=== PATIENT | female | born 1980 | race American Indian/Alaskan Native ===

== ENCOUNTER 2018-02-18 16:42 | Emergency (ER) | payer SELFPAY ==
[2018-02-18 17:52] LABS: Hematocrit 33.1 % (30.3-42.9); Hemoglobin 11.6 gm/dl (10.1-14.3); Mean Corpuscular HGB Conc 35 % (30-34); Mean Corpuscular Hemoglobin 28 pg (28-32); Mean Corpuscular Volume 80 fl (79-97); Platelet Count 316 K/mm3 (140-440); Red Blood Count 4.12 M/mm3 (3.65-5.03)
[2018-02-18 17:59] LABS: Amorphous Crystals,Urine Few; Bilirubin,Urine NEG (Negative); Blood,Urine SM (Negative); Color,Urine Yellow (Yellow); Protein,Urine <15 mg/dL mg/dL (Negative); Urobilinogen,Urine < 2.0 mg/dL (<2.0)
[2018-02-18 18:04] LABS: BUN/Creatinine Ratio 10; Blood Urea Nitrogen 5 mg/dL (7-17); Calcium 9.7 mg/dL (8.4-10.2); Hemolysis Index 2
[2018-02-18] MEDS ORDERED: ZOFRAN IV ONE (19:39)
[2018-02-18] MEDS ORDERED: NACL 0.9% 1000 ML 1,000 ML IV ONE (19:39)
[2018-02-18] MEDS ORDERED: TYLENOL PO ONE (19:39)
--- NOTE | 2018-02-18 19:46 | Emergency Department Report ---
ED Female HPI - General Chief complaint: Urogenital-Female Stated complaint: 13WKS /CRAMPS Time Seen by Provider: 02/18/18 19:35 Source: patient Mode of arrival: Ambulatory Limitations: No Limitations - History of Present Illness Initial comments: Patient 37-year-old female A0 presents for suprapubic and low back pain sudden onset today 7/10 sharp and cramping vaginal discharge white thick malodorous no vaginal bleeding last menstrual period 3 years ago patient states she's taken Dep-Provera shots, there is no fever no chills no n/v no hx of eptopic preg . MD Complaint: vaginal discharge, pelvic pain Onset/Timin -: hour(s) Location: suprapubic, LLQ, RLQ Radiation: non-radiating Severity: moderate Severity scale (0 -10): 7 Quality: cramping, sharp Consistency: constant Improves with: none Worsens with: none Are you Now?: Yes Last Menstrual Period: 02/12/16 EDC: 11/18/16 Associated Symptoms: vaginal discharge, abdominal pain. denies: nausea/vomiting , fever/chills, headaches, loss of appetite, dysuria, hematuria, rash, seizure, shortness of breath, syncope, weakness - Related Data Sexually active: Yes : 3 Para: 3 A: 0 Previous Rx's Medication Instructions Recorded Last Taken Type Cephalexin [Keflex] 500 mg PO BID #20 capsule 02/18/18 Unknown Rx Metoclopramide [Reglan] 10 mg PO ACHS #30 tablet 02/18/18 Unknown Rx metroNIDAZOLE 0.75% [Vandazole 1 applicator VG BID 7 Days #1 tube 02/18/18 Unknown Rx 0.75% VAGINAL] Allergies Allergy/AdvReac Type Severity Reaction Status Date / Time No Known Allergies Allergy Unverified 02/18/18 16:51 ED Review of Systems ROS: Stated complaint: 13WKS /CRAMPS Other details as noted in HPI Constitutional: denies: chills, fever Eyes: denies: eye pain, eye discharge, vision change ENT: denies: ear pain, throat pain Respiratory: denies: cough, shortness of breath, wheezing Cardiovascular: denies: chest pain, palpitations Endocrine: no symptoms reported Gastrointestinal: abdominal pain. denies: nausea, vomiting, diarrhea, constipation, hematemesis, melena, hematochezia Genitourinary: discharge, abnormal menses. denies: urgency, dysuria, frequency , hematuria, dyspareunia Musculoskeletal: back pain Skin: denies: rash, lesions Neurological: denies: headache, weakness, paresthesias Psychiatric: denies: anxiety, depression Hematological/Lymphatic: denies: easy bleeding, easy bruising ED Past Medical Hx - Social History Smoking Status: Current Every Day Smoker Substance Use Type: None - Medications Home Medications: Home Medications Medication Instructions Recorded Confirmed Last Taken Type Cephalexin [Keflex] 500 mg PO BID #20 capsule 02/18/18 Unknown Rx Metoclopramide [Reglan] 10 mg PO ACHS #30 tablet 02/18/18 Unknown Rx metroNIDAZOLE 0.75% [Vandazole 1 applicator VG BID 7 Days #1 tube 02/18/18 Unknown Rx 0.75% VAGINAL] ED Physical Exam - General Limitations: No Limitations General appearance: alert, in no apparent distress - Head Head exam: Present: atraumatic, normocephalic - Eye Eye exam: Present: normal appearance - ENT ENT exam: Present: mucous membranes moist - Neck Neck exam: Present: normal inspection - Respiratory Respiratory exam: Present: normal lung sounds bilaterally. Absent: respiratory distress, wheezes, stridor, chest wall tenderness - Cardiovascular Cardiovascular Exam: Present: regular rate, normal rhythm, normal heart sounds. Absent: systolic murmur, diastolic murmur, rubs, gallop - GI/Abdominal GI/Abdominal exam: Present: soft, tenderness (mild superpubic ), normal bowel sounds. Absent: guarding, rebound, rigid, bruit, hernia - Rectal Rectal exam: Present: deferred - External exam: Present: normal external exam Speculum exam: Present: erythema, vaginal discharge (white thick malodorous ). Absent: cervical discharge, vaginal bleeding, foreign body, tissue, laceration Bi-manual exam: Present: cervical motion tendernes. Absent: adnexal tenderness , adnexal mass, uterine enlargement, uterine tenderness - Extremities Exam Extremities exam: Present: normal inspection - Back Exam Back exam: Present: normal inspection - Neurological Exam Neurological exam: Present: alert - Psychiatric Psychiatric exam: Present: normal affect, normal mood - Skin Skin exam: Present: warm, dry, intact, normal color. Absent: rash ED Course Vital Signs 02/18/18 02/18/18 02/18/18 16:47 20:50 21:06 Temperature 98.7 F Pulse Rate 118 H Respiratory 20 18 18 Rate Blood Pressure 121/65 O2 Sat by Pulse 100 Oximetry ED Medical Decision Making - Lab Data Result diagrams: 02/18/18 17:45 02/18/18 17:45 Laboratory Tests 02/18/18 02/18/18 02/18/18 17:42 17:45 17:45 WBC 10.7 RBC 4.12 Hgb 11.6 Hct 33.1 MCV 80 MCH 28 MCHC 35 H RDW 18.0 H Plt Count 316 Sodium 133 L Potassium 3.9 Chloride 97.9 L Carbon Dioxide 22 Anion Gap 17 BUN 5 L Creatinine 0.5 L Estimated GFR > 60 BUN/Creatinine Ratio 10 Glucose 88 Calcium 9.7 HCG, Quant Urine Color Yellow Urine Turbidity Cloudy Urine pH 7.0 Ur Specific [place] 1.009 Urine Protein <15 mg/dl Urine Glucose (UA) Neg Urine Ketones Neg Urine Blood Sm Urine Nitrite Neg Urine Bilirubin Neg Urine Urobilinogen < 2.0 Ur Leukocyte Esterase Sm Urine WBC (Auto) 8.0 H Urine RBC (Auto) 9.0 U Epithel Cells (Auto) 43.0 H Amorphous Crystals Few 02/18/18 17:45 WBC RBC Hgb Hct MCV MCH MCHC RDW Plt Count Sodium Potassium Chloride Carbon Dioxide Anion Gap BUN Creatinine Estimated GFR BUN/Creatinine Ratio Glucose Calcium HCG, Quant 55060 H Urine Color Urine Turbidity Urine pH Ur Specific [place] Urine Protein Urine Glucose (UA) Urine Ketones Urine Blood Urine Nitrite Urine Bilirubin Urine Urobilinogen Ur Leukocyte Esterase Urine WBC (Auto) Urine RBC (Auto) U Epithel Cells (Auto) Amorphous Crystals - Radiology Data Radiology results: report reviewed US, 13 weeks 5 days, hr: 171 bpm - Medical Decision Making Ultrasound single IUP 13 weeks and 5 days heart rate is 171 bpm vaginal exam white thick discharge malodorous erythema positive CMT plan Rocephin IM and Zithromax by mouth with DC'd home with prescription for Keflex by mouth Flagyl gel vaginal follow up with [facility] in 2-3 days patient verbalized understanding and agreement with same, patient for DC'd home in stable condition at this time, pt refuses rocephin IM discussed risk of STD and pt now defers tx until hcg and chl results return. Critical care attestation.: If time is entered above; I have spent that time in minutes in the direct care of this critically ill patient, excluding procedure time. ED Disposition Clinical Impression: Positive test, BV (bacterial vaginosis), STD exposure UTI (urinary tract infection) during Qualifiers: Trimester: second trimester Qualified Code(s): O23.42 - Unspecified infection of urinary tract in , second trimester Disposition: TO HOME OR SELFCARE Is pt being admited?: No Does the pt Need Aspirin: No Condition: Stable Instructions: Bacterial Vaginosis (ED), Urinary Tract Infection in Women (ED) Prescriptions: Cephalexin [Keflex] 500 mg PO BID #20 capsule Metoclopramide [Reglan] 10 mg PO ACHS #30 tablet metroNIDAZOLE 0.75% [Vandazole 0.75% VAGINAL] 1 applicator VG BID 7 Days #1 tube Referrals: PRIMARY CARE, [Primary Care Provider] - 3-5 Days Forms: STI Treatment and Prevention, Work/School Release Form(ED) Time of Disposition: 21:53
[2018-02-18] MEDS ORDERED: ROCEPHIN IM ONE (21:20)
[2018-02-18] MEDS ORDERED: ALUM-MAG HYDROX-SIMETH 200-200-20MG/5ML PO ONE (21:20)
[2018-02-18] MEDS ORDERED: ZITHROMAX PO ONE (21:20)
[2018-02-18] MEDS ORDERED: XYLOCAINE 1% MPF 5 mL INFILTRATI ONE (21:20)
--- NOTE | 2018-02-18 21:23 | Ultrasound Report ---
FINAL REPORT EXAM: US OB < = 14 WEEKS FETUS HISTORY: without prenat care c/o severe pelvic dawson TECHNIQUE: Transabdominal grayscale and color-flow imaging of the pelvis was performed. Comparison: Transvaginal study also performed today FINDINGS: The urinary bladder is mildly distended an incompletely visualized. There is demonstration of a single intrauterine gestation with estimated gestational age of 13 weeks 5 days by measurement of crown-rump length (7.58 centimeters). heart rate is measured at 171 beats per minute. The uterus is unremarkable in appearance. The ovaries are not visualized. No free fluid is demonstrated in the pelvis. IMPRESSION: 1. Demonstration of an intrauterine gestation with estimated gestational age of 13 weeks 5 days by measurement of crown-rump length. 2. heart rate measured at 171 beats per minute. 3. The ovaries are not visualized. Please see report of transvaginal ultrasound also performed today.
--- NOTE | 2018-02-18 21:23 | Ultrasound Report ---
FINAL REPORT EXAM: US OB TRANSVAGINAL HISTORY: without prenat care c/o severe pelvic dawson TECHNIQUE: Transvaginal grayscale, color-flow and M-mode imaging of the uterus was performed. Comparison: Transabdominal study also performed today FINDINGS: There is demonstration of a single intrauterine gestation with estimated gestational age of 13 weeks 5 days by measurement of crown-rump length (7.59 centimeters). heart rate is measured at 167 beats per minute. The cervix is closed and unremarkable in appearance. No free fluid is demonstrated in the pelvis. The ovaries are not visualized. IMPRESSION: 1. Demonstration of a single intrauterine gestation with estimated gestational age of 13 weeks 5 days by measurement of crown-rump length. 2. heart rate measured at 167 beats per minute. 3. The ovaries are not visualized.
[2018-02-18 23:17] VITALS: BP 118/60
== END 2018-02-18 22:00 | disposition left against medical advice (07) ==
LOC: ED 16:42
DX: O26.891 Other specified pregnancy related conditions, first trimester (principal); O23.591 Infection of other part of genital tract in pregnancy, first trimester; N76.0 Acute vaginitis; B96.89 Other specified bacterial agents as the cause of diseases classified elsewhere; F17.200 Nicotine dependence, unspecified, uncomplicated; Z3A.13 13 weeks gestation of pregnancy; Z20.2 Contact with and (suspected) exposure to infections with a predominantly sexual mode of transmission
CPT/HCPCS: 36415; 76801; 76817; 80048; 81001; 84702; 85027; 87210; 87591; 96374; 99284; J0696; J2405; J7030

== ENCOUNTER 2018-03-03 14:23 | Emergency (ER) | payer MEDICAID ==
[2018-03-03 14:40] VITALS: BP 115/64
--- NOTE | 2018-03-03 15:04 | Emergency Department Report ---
ED Female HPI - General Chief complaint: Urogenital-Female Stated complaint: VAGINAL DISCHARGE/CRAMPING/[id number] Time Seen by Provider: 03/03/18 14:47 Source: patient Mode of arrival: Ambulatory Limitations: No Limitations - History of Present Illness Initial comments: This is a 37-year-old female nontoxic, well nourished in appearance, no acute signs of distress presents to the ED with c/o of pelvic cramping intermittently and vaginal discharge. She did state that she was here 2 weeks ago and was diagnosed with bacterial vaginosis and a UTI with 13 weeks . Patient stated that she was prescribed medication but she left her medications in the hospital and has not taken her medications. Patient denies any symptoms change in. Patient stated symptoms are the same. Patient denies any vaginal bleeding , bowel pain, fever, chills, nausea, vomiting, chest pain, but hematocrit stiff neck. Patient denies any urinary symptoms. Denies any allergies significant past medical history. MD Complaint: vaginal discharge, pelvic pain -: week(s) (2) Radiation: non-radiating Severity: mild Severity scale (0 -10): 3 Quality: cramping Consistency: intermittent, now resolved Improves with: none Worsens with: none Associated Symptoms: vaginal discharge. denies: vaginal bleeding, abdominal pain, nausea/vomiting, fever/chills, headaches, loss of appetite, dysuria, hematuria, rash, seizure, shortness of breath, syncope, weakness - Related Data Previous Rx's Medication Instructions Recorded Last Taken Type Cephalexin [Keflex] 500 mg PO BID #20 capsule 02/18/18 Unknown Rx Metoclopramide [Reglan] 10 mg PO ACHS #30 tablet 02/18/18 Unknown Rx metroNIDAZOLE 0.75% [Vandazole 1 applicator VG BID 7 Days #1 tube 02/18/18 Unknown Rx 0.75% VAGINAL] Nitrofurantoin [place]/M-Cryst 100 mg PO Q12HR #14 capsule 03/03/18 Unknown Rx [Macrobid CAP] metroNIDAZOLE [Metrocream 0.75%] 1 applicatio VG BID 7 Days #1 03/03/18 Unknown Rx cream..g. Allergies Allergy/AdvReac Type Severity Reaction Status Date / Time No Known Allergies Allergy Unverified 02/18/18 16:51 ED Review of Systems ROS: Stated complaint: VAGINAL DISCHARGE/CRAMPING/[id number] Other details as noted in HPI Constitutional: denies: chills, fever Eyes: denies: eye pain, eye discharge, vision change ENT: denies: ear pain, throat pain Respiratory: denies: cough, shortness of breath, wheezing Cardiovascular: denies: chest pain, palpitations Endocrine: no symptoms reported Gastrointestinal: denies: abdominal pain, nausea, diarrhea Genitourinary: denies: urgency, dysuria, discharge Musculoskeletal: denies: back pain, joint swelling, arthralgia Skin: denies: rash, lesions Neurological: denies: headache, weakness, paresthesias Psychiatric: denies: anxiety, depression Hematological/Lymphatic: denies: easy bleeding, easy bruising ED Past Medical Hx - Past Medical History Previous Medical History?: No - Surgical History Past Surgical History?: No - Social History Smoking Status: Current Every Day Smoker Substance Use Type: None - Medications Home Medications: Home Medications Medication Instructions Recorded Confirmed Last Taken Type Cephalexin [Keflex] 500 mg PO BID #20 capsule 02/18/18 Unknown Rx Metoclopramide [Reglan] 10 mg PO ACHS #30 tablet 02/18/18 Unknown Rx metroNIDAZOLE 0.75% [Vandazole 1 applicator VG BID 7 Days #1 tube 02/18/18 Unknown Rx 0.75% VAGINAL] Nitrofurantoin [place]/M-Cryst 100 mg PO Q12HR #14 capsule 03/03/18 Unknown Rx [Macrobid CAP] metroNIDAZOLE [Metrocream 0.75%] 1 applicatio VG BID 7 Days #1 03/03/18 Unknown Rx cream..g. ED Physical Exam - General Limitations: No Limitations General appearance: alert, in no apparent distress - Head Head exam: Present: atraumatic, normocephalic - Eye Eye exam: Present: normal appearance - ENT ENT exam: Present: mucous membranes moist - Neck Neck exam: Present: normal inspection - Respiratory Respiratory exam: Present: normal lung sounds bilaterally. Absent: respiratory distress - Cardiovascular Cardiovascular Exam: Present: regular rate, normal rhythm. Absent: systolic murmur, diastolic murmur, rubs, gallop - GI/Abdominal GI/Abdominal exam: Present: soft, normal bowel sounds. Absent: distended, tenderness, guarding, rebound, rigid, diminished bowel sounds - Extremities Exam Extremities exam: Present: normal inspection, full ROM, normal capillary refill - Back Exam Back exam: Present: normal inspection, full ROM - Neurological Exam Neurological exam: Present: alert, oriented X3 - Psychiatric Psychiatric exam: Present: normal affect, normal mood - Skin Skin exam: Present: warm, dry, intact, normal color. Absent: rash ED Course Vital Signs 03/03/18 14:36 Temperature 98.7 F Pulse Rate 95 H Respiratory 18 Rate Blood Pressure 115/64 O2 Sat by Pulse 98 Oximetry - Reevaluation(s) Reevaluation #1: 03/03/18 15:01 Patient is speaking in full sentences with no signs of distress noted. ED Medical Decision Making - Medical Decision Making This is a 37-year-old female presents with BV and UTI. Patient is stable and was examined by me. Patient was previously here 2 weeks ago and was diagnosed with bacterial vaginosis and UTI. Patient was prescribed Keflex and metronidazole vaginal cream but patient states she has never taken it. A ultrasound in the previous visit obtained with normal heartbeat and 13 weeks 5 days. Patient also stated she was treated empircally with Azith and Rocephine in the ED in the previous visit. G/C swabs negative from previous visit. Patient stated that the pain is cramping and is intermittent. Currently in ER patient denies any pelvic pain or abdominal pain. I will prescribe patient the medication. Patient was referred to Follow-up with a [facility] doctor in 3-5 days or if symptoms worsen and continue return to emergency room as soon as possible. At time of discharge, the patient does not seem toxic or ill in appearance. No acute signs of distress noted. Patient agrees to discharge treatment plan of care. No further questions noted by the patient. Critical care attestation.: If time is entered above; I have spent that time in minutes in the direct care of this critically ill patient, excluding procedure time. ED Disposition Clinical Impression: Bacterial vaginosis, Pelvic cramping in antepartum period UTI (urinary tract infection) during Qualifiers: Trimester: unspecified trimester Qualified Code(s): O23.40 - Unspecified infection of urinary tract in , unspecified trimester Disposition: DC-01 TO HOME OR SELFCARE Is pt being admited?: No Does the pt Need Aspirin: No Condition: Stable Instructions: Bacterial Vaginosis (ED), Urinary Tract Infection in Women (ED), (ED) Additional Instructions: Follow-up with a [facility] doctor in 3-5 days or if symptoms worsen and continue return to emergency room as soon as possible. Prescriptions: metroNIDAZOLE [Metrocream 0.75%] 1 applicatio VG BID 7 Days #1 cream..g. Nitrofurantoin [place]/M-Cryst [Macrobid CAP] 100 mg PO Q12HR #14 capsule Referrals: [facility]IMARY [facility] [Referring] - 3-5 Days LUCHO KELLY MD [Staff Physician] - 3-5 Days [facility] [Provider Group] - 3-5 Days
== END 2018-03-03 15:24 | disposition home or self-care (01) ==
LOC: ED 14:23
DX: O23.41 Unspecified infection of urinary tract in pregnancy, first trimester (principal); F17.200 Nicotine dependence, unspecified, uncomplicated; Z3A.13 13 weeks gestation of pregnancy
CPT/HCPCS: 99282